=== PATIENT | male | born 1955 | race Caucasian/White ===

== ENCOUNTER 2022-03-04 07:31 | Day surgery (SDC) | payer OTHER, SELFPAY ==
[2022-03-04] MEDS: Tropicam./Phenyleph. (1/2.5%) 5 ML BTL OD ×3 (08:16→08:27)
[2022-03-04 08:17] VITALS: BP 166/90; PULSE 79; RESP 16; TEMP 36.6; O2SAT 98
--- NOTE | 2022-03-04 08:25 | W.ANESPRE ---
General Info Date of Service Date Performed: 03/04/22 Height: 5 ft 7 in Weight: 92.533 kg Body Mass Index (BMI): 31.9 Surgical Procedure: Operation Date: 03/04/22 09:10 Proposed Procedure Side Surgeon p Cataract Extraction with IOL Implant Right Quoc Roberts MD Meds Allergies and Home Medications Allergies Allergy/AdvReac Type Severity Reaction Status Date / Time No Known Allergies Allergy Unverified 03/04/22 08:08 Home Medication Medication Instructions Recorded Lactobacillus comb 2 cap PO DAILY 03/03/22 [id number] 300 million cell-250 mg capsule (Probiotic and Acidophilus) Tumeric Complex 500 mg PO BID 03/03/22 allopurinol 100 mg tablet 100 mg PO DAILY 03/03/22 amitriptyline 10 mg tablet 10 mg PO HS 03/03/22 amlodipine 10 mg tablet 10 mg PO DAILY 03/03/22 escitalopram oxalate 10 mg tablet 10 mg PO DAILY 03/03/22 furosemide 20 mg tablet 20 mg PO DIRECTED 03/03/22 glipizide 5 mg tablet 5 mg PO BID 03/03/22 insulin glargine 100 unit/mL (3 12 unit subcut BID 03/03/22 mL) subcutaneous pen (Lantus Solostar U-100 Insulin) metoprolol succinate 200 mg 200 mg PO DAILY 03/03/22 tablet,extended release 24 hr omega-3 fatty acids-vitamin E 1 cap PO BID 03/03/22 1,000 mg capsule phenazopyridine 200 mg tablet 200 mg PO TID PRN Pain 03/03/22 sodium bicarbonate 325 mg tablet 325 mg PO BID 03/03/22 sodium bicarbonate 650 mg tablet 650 mg PO BID 03/03/22 tamsulosin 0.4 mg capsule 0.4 mg PO HS 03/03/22 Current Visit Medications: Current Medications Generic Name Dose Route Start Last Admin Trade Name Freq PRN Reason Stop Dose Admin Acetaminophen 1,000 mg 03/04/22 06:00 Acetaminophen 500 Mg Tab PO Q4H PRN PRN Miscellaneous Medication 0 ml 03/04/22 06:00 Prednisolone 1%, Moxifloxacin 0.5%, Nepafenac 0.1% 5ml Btl OD DIRECTED DENISSE Miscellaneous Medication 0 ml 03/04/22 06:00 03/04/22 08:21 Tropicam./Phenyleph. (1/2.5%) 5 Ml Btl OD 1 drp DIRECTED DENISSE Administration Tetracaine HCl 0 ml 03/04/22 06:00 Tetracaine 0.5% 4 Ml Btl OD DIRECTED [facility] Medical History Medical History AV fistula LEFT SIDE Depression Diabetes mellitus End stage renal disease recieves dialysis. M-W-F HTN (hypertension) Port-A-Cath in place Right chest Prostate cancer Surgical History Surgical History (Updated 03/04/22 @ 08:08 by Heather Ramirez) Hx of colonoscopy Hx of gastric bypass Hx of prostatectomy Tobacco Smoking/Tobacco Use Status: Former Tobacco Use Alcohol Alcohol Intake: never Substance Use Substance use: Never Substance use type: does not use Vital Signs and Lab Results Vital Signs Most Recent Vital Signs in EMR: Most Recent Vital Signs Temp Pulse Resp BP Pulse Ox 36.6 C 79 16 166/90 H 98 03/04/22 08:17 03/04/22 08:17 03/04/22 08:17 03/04/22 08:17 03/04/22 08:17 Point of Care Results Point of Care Results: Finger Stick Blood Glucose 89 03/04/22 08:24 Lab Results Blood Type / Crossmatch: No Data to Display Complete Blood Count: No Data to Display Complete Metabolic Panel: No Data to Display Liver Function Panel: No Data to Display Coagulation Panel: No Data to Display Cardiac Panel: No Data to Display Arterial Blood Gas: No Data to Display Venous Blood Gas: No Data to Display Pancreas Panel: No Data to Display Thyroid Panel: No Data to Display Infectious Disease: No Data to Display Blood Cultures: No Data to Display Toxicology Panel: No Data to Display Anesthesia Assessment and Plan Anesthesia History Personal History: No History of Anesthesia Complications Family History: No Family History of Anesthesia Complications Exercise Tolerance Exercise Tolerance: Metabolic Equivalents<4 Pertinent Negatives Pertinent Negatives: No Major Cardiovascular Symptoms or Complaints and No Major Pulmonary Symptoms or Complaints Cardiac & Pulmonary Exam Cardiac Exam: Normal S1/S2 Heart Sounds Pulmonary Exam: Clear Bilateral Breath Sounds Implantable Cardiac Device Does patient have a Pacemaker or an ICD?: No Airway Exam Known Difficult Airway: No Mallampati Class: 3 Mouth Opening: Normal (> 3cm) Thyromental Distance: Greater than 3 cm Neck Range of Motion: Full ROM Neck Circumference: Normal Teeth Condition: Normal Dentition and Removable Dentures/Plates Lower (Lower partial) ASA Classification ASA Score: ASA 3 Emergency Case?: No NPO Status NPO Status: NPO Clears >2 hours, Solids >8 hours Anesthesia Plan Resuscitation Status: Full Code Anesthesia Technique: MAC Anesthesia Airway Planned: Natural Airway Monitors Used: Standard Monitors
[2022-03-04 08:58] VITALS: BMI 31.9
[2022-03-04] MEDS: Tetracaine 0.5% 4 ML BTL OD (09:08)
[2022-03-04] MEDS: Povidone-Iodine Ophth 30 ML BTL (09:09)
[2022-03-04] MEDS: Lidocaine 2% Jelly 6 ML SYR (09:10)
[2022-03-04] MEDS: Duovisc Viscoelastic System EACH 1 EACH (09:15)
[2022-03-04] MEDS: Balanced Salt Soln.-PLUS 500 ML BAG (09:15)
[2022-03-04] MEDS: Triamcinolone 40 MG/ML VIAL (09:21)
--- NOTE | 2022-03-04 09:39 | W.PM.DSUDISC ---
Discharge Plan Disposition Patient Disposition: HOME Condition: Good Discharge Details Attending Provider: Quoc Roberts Primary Care Provider: Chester Ahumada Home Meds and New Rx's Prescriptions: No Action sodium bicarbonate 325 mg Tablet 325 mg PO BID metoprolol succinate 200 mg Tablet Extended Release 24 Hr 200 mg PO DAILY phenazopyridine 200 mg Tablet 200 mg PO TID PRN (Reason: Pain) allopurinol 100 mg Tablet 100 mg PO DAILY tamsulosin 0.4 mg Capsule 0.4 mg PO HS amitriptyline 10 mg Tablet 10 mg PO HS sodium bicarbonate 650 mg Tablet 650 mg PO BID amlodipine 10 mg Tablet 10 mg PO DAILY furosemide 20 mg Tablet 20 mg PO DIRECTED glipizide 5 mg Tablet 5 mg PO BID escitalopram oxalate 10 mg Tablet 10 mg PO DAILY Fish Oil 1,000 mg Capsule 1 cap PO BID Lantus Solostar U-100 Insulin 100 unit/mL (3 mL) Insulin Pen 12 unit SUBCUT BID Probiotic and Acidophilus 300-250 million cell-mg Capsule 2 cap PO DAILY Tumeric Complex 500 mg capsule 500 mg PO BID Discharge Instructions Stand Alone Forms: Post-op Topical Cataract, Adilene Robles ([facility]U) Discharge Orders Discharge Orders: Discharge Order (Routine); Ordered 03/04/22 Ordered By: Quoc Roberts DS: Diagnosis Discharge Diagnosis (1) Nuclear sclerotic cataract of right eye: Status: Resolved (2) Posterior subcapsular age-related cataract, right eye: Status: Resolved
--- NOTE | 2022-03-04 09:40 | ROE_ITS ---
Date of service: 03/04/22 Time of Service: 08:40 Operative Note Operative Note DATE OF PROCEDURE: 03/04/22 PRE-OP DIAGNOSIS: Nuclear/posterior subcapsular cataract, right eye POST-OP DIAGNOSIS: same PROCEDURE: Cataract extraction using phacoemulsification with intraocular lens implant, right eye SURGEON: Quoc Roberts ANESTHESIA TYPE: Local By Surgeon and MAC Refer to Anesthesia Record ESTIMATED BLOOD LOSS: 0 PATHOLOGY: none sent COMPLICATIONS: None Patient was transported to: same day Patient's condition: stable Implants: Naif & Naif/TONYA Tecnis [id number] Indications: Progressive visual loss due to cataract, right eye Procedure Description: CATARACT SURGERY OPERATIVE REPORT PREOPERATIVE DIAGNOSIS: 1. Nuclear/posterior subcapsular cataract, right eye POSTOPERATIVE DIAGNOSIS: Same OPERATION: 1. Cataract extraction using phacoemulsification with posterior chamber intraocular lens implant, right eye. IOL: IOL Medical Receptionist Medical Assistant/Model: Naif & Naif / TONYA Tecnis [id number] IOL Power: + 22.5 diopters IOL Serial Number: [id number] Optic Diameter: 6.0mm Haptic/Overall Diameter: 13.0mm PHACO INFO: [employer]ion Vision System with OZil and Active Fluidics Cumulative Dispersed Energy (CDE): 5.34 seconds SURGEON: Quoc Roberts MD, GENE ANESTHESIA: Monitored Anesthesia Care (MAC), with local sub-tenon's anesthetic infiltration COMPLICATIONS: None SPECIMENS: None INDICATIONS FOR PROCEDURE: The patient is a 67-year-old gentleman with history of diminished visual acuity in his right eye secondary to the development of nuclear and posterior subcapsular cataract. 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 He is currently undergoing intravitreal injections for treatment of his macular edema. He presents for cataract surgery and attempt to improve and maximize his vision. PROCEDURE: The correct surgical eye was identified and marked as the right eye and the pupil was dilated in the preoperative area using mydriatics and cycloplegics. The dilated pupil size was 7.0 mm. He elected to proceed without oral sedation. The patient was brought to the operating room where cardiopulmonary monitoring was instituted and surgical time-out was performed, confirming the correct operative eye and IOL power. Topical anesthesia was administered and ophthalmic povidone-iodine 5% was instilled into the conjunctival fornices. Lidocaine gel was applied to the cornea and the yanira-ocular area was prepped with Betadine 10% solution and draped in the usual sterile fashion for intraocular surgery, including an aperture drape. A Tegaderm transparent film dressing was cut in half and used to cover the lashes and lid margins. Care was taken to sequester the lashes and lid margins under the Tegaderm dressing. A lid speculum was placed between the lids of the operative eye and the Gabriel [employer] Revalia operating microscope was maneuvered into position. Joyce scissors were then used to make a conjunctival buttonhole approximately 6mm posterior to the limbus in the inferonasal quadrant. Blunt dissection was carried out to expose bare sclera, and a blunt-tipped sub-tenon?s anesthesia cannula was introduced and passed posteriorly along the globe where non- preserved plain lidocaine was injected into posterior sub-Tenon?s space. A sideport knife was used to make a paracentesis port inferotemporally. Intraocular phenylephrine/lidocaine was injected into the anterior chamber. The anterior chamber was filled with viscoelastic. A 2.4mm keratome knife was used to construct a 2-plane near-clear corneal tunnel extending 2.0mm into clear cornea superiortemporally. A flap was raised on the anterior capsule and capsulorhexis forceps were used to complete a continuous curvilinear capsulorhexis of 5.0 mm. Capsulorhexis was challenging due to constant eye movement. Balanced salt solution was then used to perform cortical cleaving hydrodissection and nuclear hydrodelineation until the lens could be freely rotated within the capsular bag. The lens nucleus was then disassembled and removed within the capsular bag and iris plane using phacoemulsification. Residual cortical material was removed using the I/A handpiece. The posterior capsule could not be effectively polished due to constant patient movement. Capsular bag was then inflated and the anterior chamber deepened with viscoelastic. The lens implant described above was inserted into the capsular bag using the TONYA [place] Injector. A Kuglen hook was used to dial the IOL into position. Residual viscoelastic was then removed first from posterior to the IOL, then from the anterior chamber using the I/A handpiece. The lens implant was noted to center nicely within the capsular bag. The incisions were stromally hydrated, and the anterior chamber was reformed using BSS. Then 0.5cc of moxifloxacin 1.0mg/ml were injected into the capsular bag and anterior chamber. The incisions were checked with a Weck spear and found to be secure. At the conclusion of the procedure, Kenalog 20 mg in 0.5 cc were injected into posterior sub-tenon's space using the sub-tenon's anesthesia injection cannula. Several drops of ophthalmic povidone-iodine 5% were then applied to the eye followed by two drops of Imprimis combination prednisolone/moxifloxacin/nepafenac solution. The drapes were removed and a clear plastic protective eye shield was placed over the eye. The patient was then returned to Same Day Surgery in stable condition.
[2022-03-04 09:57] VITALS: BP 167/100; PULSE 81; RESP 16; TEMP 36.4; O2SAT 97
--- NOTE | 2022-03-04 10:13 | W.ANESPOSTOP ---
Postoperative Evaluation Date, Time and Location Date Performed: 03/04/22 Time Performed: 09:57 Patient Location: Day Surgery Unit Vital Signs Most Recent Imported Vital Signs: Most Recent Vital Signs Temp Pulse Resp BP Pulse Ox 36.4 C L 81 16 167/100 H 97 03/04/22 09:57 03/04/22 09:57 03/04/22 09:57 03/04/22 09:57 03/04/22 09:57 Pain Score Most Recent Pain Score: Most Recent Pain Score Pain Level 0 03/04/22 09:57 Assessment Mental Status: Awake (Alert & Oriented to Patient Baseline) Airway and Respiratory Function: Patent airway with normal (patient baseline) respiratory exam Cardiovascular Function: Hemodynamically Stable Hydration Status: Adequately Hydrated Nausea & Vomiting: No Nausea or Vomiting Pain: Pt. Denies Any Pain Peripheral Nerve Block: Patient did not receive a nerve block
== END 2022-03-04 10:04 | disposition home or self-care (01) ==
PROVIDERS: PCP Family Medicine; Visit Provider Ophthalmology
PROC: (CPT 66984; principal; 2022-03-04 09:00)
DX: H25.811 Combined forms of age-related cataract, right eye (principal); E11.22 Type 2 diabetes mellitus with diabetic chronic kidney disease; I12.0 Hypertensive chronic kidney disease with stage 5 chronic kidney disease or end stage renal disease; N18.6 End stage renal disease; Z99.2 Dependence on renal dialysis; C61 Malignant neoplasm of prostate
CPT/HCPCS: 66984; V2632

== ENCOUNTER 2022-03-18 07:04 | Day surgery (SDC) | payer OTHER, SELFPAY ==
[2022-03-18 07:17] VITALS: BP 177/92; PULSE 79; RESP 16; TEMP 36.5; O2SAT 99
[2022-03-18 07:24] VITALS: BP 177/92; PULSE 79; RESP 16; TEMP 36.5; O2SAT 99
[2022-03-18] MEDS: Tropicam./Phenyleph. (1/2.5%) 5 ML BTL OS ×3 (07:31→07:43)
--- NOTE | 2022-03-18 07:45 | W.ANESPRE ---
General Info Date of Service Date Performed: 03/18/22 Height: 5 ft 7 in Weight: 92.4 kg Body Mass Index (BMI): 31.8 Surgical Procedure: Operation Date: 03/18/22 08:40 Proposed Procedure Side Surgeon p Cataract Extraction with IOL Implant Left Quoc Roberts MD Meds Allergies and Home Medications Allergies Allergy/AdvReac Type Severity Reaction Status Date / Time No Known Allergies Allergy Verified 03/18/22 07:33 Home Medication Medication Instructions Recorded Lactobacillus comb 2 cap PO DAILY 03/03/22 [id number] 300 million cell-250 mg capsule (Probiotic and Acidophilus) Tumeric Complex 500 mg PO BID 03/03/22 amitriptyline 10 mg tablet 10 mg PO HS 03/03/22 amlodipine 10 mg tablet 10 mg PO DAILY 03/03/22 escitalopram oxalate 10 mg tablet 10 mg PO DAILY 03/03/22 furosemide 20 mg tablet 20 mg PO DIRECTED 03/03/22 glipizide 5 mg tablet 5 mg PO BID 03/03/22 insulin glargine 100 unit/mL (3 12 unit subcut BID 03/03/22 mL) subcutaneous pen (Lantus Solostar U-100 Insulin) metoprolol succinate 200 mg 200 mg PO DAILY 03/03/22 tablet,extended release 24 hr omega-3 fatty acids-vitamin E 1 cap PO BID 03/03/22 1,000 mg capsule sodium bicarbonate 325 mg tablet 325 mg PO BID 03/03/22 sodium bicarbonate 650 mg tablet 650 mg PO BID 03/03/22 tamsulosin 0.4 mg capsule 0.4 mg PO HS 03/03/22 Current Visit Medications: Current Medications Generic Name Dose Route Start Last Admin Trade Name Freq PRN Reason Stop Dose Admin Acetaminophen 1,000 mg 03/18/22 06:00 Acetaminophen 500 Mg Tab PO Q4H PRN PRN Miscellaneous Medication 0 ml 03/18/22 06:00 Prednisolone 1%, Moxifloxacin 0.5%, Nepafenac 0.1% 5ml Btl OS DIRECTED [facility] Miscellaneous Medication 0 ml 03/18/22 06:00 03/18/22 07:43 Tropicam./Phenyleph. (1/2.5%) 5 Ml Btl OS 1 drp DIRECTED [facility] Administration Tetracaine HCl 0 ml 03/18/22 06:00 Tetracaine 0.5% 4 Ml Btl OS DIRECTED [facility] PFS Active Problems Active Problems: Problem Status Onset Code Posterior subcapsular age-related cataract, right eye H25.041 Nuclear sclerotic cataract of right eye H25.11 Medical History Medical History AV fistula LEFT SIDE Depression Diabetes mellitus End stage renal disease recieves dialysis. M-W-F HTN (hypertension) Port-A-Cath in place Right chest Prostate cancer Surgical History Surgical History Hx of colonoscopy Hx of gastric bypass Hx of prostatectomy Tobacco Smoking/Tobacco Use Status: Former Tobacco Use Alcohol Alcohol Intake: never Substance Use Substance use: Never Substance use type: does not use Vital Signs and Lab Results Vital Signs Most Recent Vital Signs in EMR: Most Recent Vital Signs Temp Pulse Resp BP Pulse Ox 36.5 C 79 16 177/92 H 99 03/18/22 07:24 03/18/22 07:24 03/18/22 07:24 03/18/22 07:24 03/18/22 07:24 Point of Care Results Point of Care Results: Finger Stick Blood Glucose 131 03/18/22 07:35 Lab Results Blood Type / Crossmatch: No Data to Display Complete Blood Count: No Data to Display Complete Metabolic Panel: No Data to Display Liver Function Panel: No Data to Display Coagulation Panel: No Data to Display Cardiac Panel: No Data to Display Arterial Blood Gas: No Data to Display Venous Blood Gas: No Data to Display Pancreas Panel: No Data to Display Thyroid Panel: No Data to Display Infectious Disease: No Data to Display Blood Cultures: No Data to Display Toxicology Panel: No Data to Display Anesthesia Assessment and Plan Anesthesia History Personal History: No History of Anesthesia Complications Family History: No Family History of Anesthesia Complications Exercise Tolerance Exercise Tolerance: Metabolic Equivalents<4 Cardiac & Pulmonary Exam Cardiac Exam: Normal S1/S2 Heart Sounds Pulmonary Exam: Clear Bilateral Breath Sounds Implantable Cardiac Device Does patient have a Pacemaker or an ICD?: No Airway Exam Known Difficult Airway: No Mallampati Class: 3 Mouth Opening: Normal (> 3cm) Thyromental Distance: Greater than 3 cm Neck Range of Motion: Full ROM Neck Circumference: Normal Teeth Condition: Normal Dentition and Removable Dentures/Plates Lower (Lower partial) ASA Classification ASA Score: ASA 4 Emergency Case?: No NPO Status NPO Status: NPO Clears >2 hours, Solids >8 hours Anesthesia Plan Resuscitation Status: Full Code Anesthesia Technique: MAC Anesthesia Airway Planned: Natural Airway Monitors Used: Standard Monitors
[2022-03-18 08:10] VITALS: BMI 31.8
[2022-03-18] MEDS: Lidocaine 2% Jelly 6 ML SYR (08:17)
[2022-03-18] MEDS: Tetracaine 0.5% 4 ML BTL OS (08:17)
[2022-03-18] MEDS: Balanced Salt Soln.-PLUS 500 ML BAG (08:30)
[2022-03-18] MEDS: Duovisc Viscoelastic System EACH 1 EACH (08:30)
[2022-03-18] MEDS: Povidone-Iodine Ophth 30 ML BTL (08:31)
--- NOTE | 2022-03-18 08:49 | W.PM.DSUDISC ---
Discharge Plan Disposition Patient Disposition: HOME Condition: Good Discharge Details Attending Provider: Quoc Roberts Primary Care Provider: Chester Ahumada Home Meds and New Rx's Prescriptions: No Action sodium bicarbonate 325 mg Tablet 325 mg PO BID metoprolol succinate 200 mg Tablet Extended Release 24 Hr 200 mg PO DAILY tamsulosin 0.4 mg Capsule 0.4 mg PO HS amitriptyline 10 mg Tablet 10 mg PO HS sodium bicarbonate 650 mg Tablet 650 mg PO BID amlodipine 10 mg Tablet 10 mg PO DAILY furosemide 20 mg Tablet 20 mg PO DIRECTED glipizide 5 mg Tablet 5 mg PO BID escitalopram oxalate 10 mg Tablet 10 mg PO DAILY Fish Oil 1,000 mg Capsule 1 cap PO BID Lantus Solostar U-100 Insulin 100 unit/mL (3 mL) Insulin Pen 12 unit SUBCUT BID Probiotic and Acidophilus 300-250 million cell-mg Capsule 2 cap PO DAILY Tumeric Complex 500 mg capsule 500 mg PO BID Discharge Instructions Stand Alone Forms: Post-op Topical Cataract, Adilene Robles ([facility]U) Discharge Orders Discharge Orders: Discharge Order (Routine); Ordered 03/18/22 Ordered By: Quoc Roberts DS: Diagnosis Discharge Diagnosis (1) Cortical cataract of left eye: Status: Resolved (2) Nuclear sclerotic cataract of left eye: Status: Resolved
--- NOTE | 2022-03-18 08:52 | ROE_ITS ---
Date of service: 03/18/22 Time of Service: 07:52 Operative Note Operative Note DATE OF PROCEDURE: 03/18/22 PRE-OP DIAGNOSIS: Nuclear/posterior subcapsular cataract, left eye nuclear/posterior subcapsular cataract, left eye POST-OP DIAGNOSIS: same PROCEDURE: Cataract extraction using phacoemulsification with intraocular lens implant, left eye SURGEON: Quoc Roberts ANESTHESIA TYPE: Local By Surgeon and MAC Refer to Anesthesia Record PATHOLOGY: none sent COMPLICATIONS: None Patient was transported to: same day Patient's condition: stable Implants: Naif and Naif / [employer] Tecnis [id number] Indications: Progressive decreased vision due to cataract, left eye Procedure Description: CATARACT SURGERY OPERATIVE REPORT PREOPERATIVE DIAGNOSIS: 1. Nuclear/posterior subcapsular cataract, left eye POSTOPERATIVE DIAGNOSIS: Same OPERATION: 1. Cataract extraction using phacoemulsification with posterior chamber intraocular lens implant, left eye. IOL: IOL Eyeglass Frames Polisher/Model: Naif & Naif / TONYA Tecnis ZCB00 IOL Power: + 22.5 diopters IOL Serial Number: [id number] Optic Diameter: 6.0 mm Haptic/Overall Diameter: 13.0 mm PHACO INFO: [employer]urion Vision System with OZil and Active Fluidics Cumulative Dispersed Energy (CDE): 5.60 seconds SURGEON: Quoc Roberts MD, GENE ANESTHESIA: Monitored A [facility] (MAC), with local sub-tenon's anesthetic infiltration COMPLICATIONS: None SPECIMENS: None INDICATIONS FOR PROCEDURE: The patient is a 67-year-old male with history of diminished visual acuity in both eyes secondary to development of significant bilateral cataract. He has already undergone cataract surgery in the right eye and is doing well postoperatively. He now presents for cataract surgery in the left eye. PROCEDURE: The correct surgical eye was identified and marked as the left eye and the pupil was dilated in the preoperative area using mydriatics and cycloplegics. The dilated pupil size was 6.5 mm. He elected to proceed without oral sedation. The patient was brought to the operating room where cardiopulmonary monitoring was instituted and surgical time-out was performed, confirming the correct operative eye and IOL power. Topical anesthesia was administered and ophthalmic povidone-iodine 5% was instilled into the conjunctival fornices. Lidocaine gel was applied to the cornea and the yanira-ocular area was prepped with Betadine 10% solution and draped in the usual sterile fashion for intraocular surgery, including an aperture drape. A Tegaderm transparent film dressing was cut in half and used to cover the lashes and lid margins. Care was taken to sequester the lashes and lid margins under the Tegaderm dressing. A lid speculum was placed between the lids of the operative eye and the Gabriel [employer] Revalia operating microscope was maneuvered into position. Joyce scissors were then used to make a conjunctival buttonhole approximately 6mm posterior to the limbus in the inferonasal quadrant. Blunt dissection was carried out to expose bare sclera, and a blunt-tipped sub-tenon?s anesthesia cannula was introduced and passed posteriorly along the globe where non- preserved plain lidocaine was injected into posterior sub-Tenon?s space. A sideport knife was used to make a paracentesis port superiorly/superiortemporally. Intraocular phenylephrine/lidocaine was injected int the anterior chamber.. The anterior chamber was filled with viscoelastic. A 2.4mm keratome knife was used to construct a 2-plane near-clear corneal tunnel extending 2.0mm into clear cornea temporally. A flap was raised on the anterior capsule and capsulorhexis forceps were used to complete a continuous curvilinear capsulorhexis of 5.0 mm. Balanced salt solution was then used to perform cortical cleaving hydrodissection and nuclear hydrodelineation until the lens could be freely rotated within the capsular bag. The lens nucleus was then disassembled and removed within the capsular bag and iris plane using phacoemulsification. Residual cortical material was removed using the 45-degree angled silicone I/A tip with 0.3mm port. The posterior capsule was carefully polished to remove as much residual lens epithelial cells as safely possible. The capsular bag was then inflated and the anterior chamber deepened with viscoelastic. The lens implant described above was inserted into the capsular bag using the TONYA [place] Injector. A Kuglen hook was used to dial the IOL into position. Residual viscoelastic was then removed first from posterior to the IOL, then from the anterior chamber using the I/A handpiece. The lens implant was noted to center nicely within the capsular bag. The incisions were stromally hydrated, and the anterior chamber was reformed using BSS. Then 0.5cc of moxifloxacin 1.0mg/ml were injected into the capsular bag and anterior chamber. The incisions were checked with a Weck spear and found to be secure. Several drops of ophthalmic povidone-iodine 5% were then applied to the eye followed by two drops of Imprimis combination prednisolone/moxifloxacin/nepafenac solution. The drapes were removed and a clear plastic protective eye shield was placed over the eye. The patient was then returned to Same Day Surgery in stable condition.
[2022-03-18 08:54] VITALS: BP 184/99; PULSE 81; RESP 18; TEMP 36.6; O2SAT 96
--- NOTE | 2022-03-18 09:08 | W.ANESPOSTOP ---
Postoperative Evaluation Date, Time and Location Date Performed: 03/18/22 Time Performed: 09:01 Patient Location: Day Surgery Unit Vital Signs Most Recent Imported Vital Signs: Most Recent Vital Signs Temp Pulse Resp BP Pulse Ox 36.6 C 81 18 184/99 H 96 03/18/22 08:54 03/18/22 08:54 03/18/22 08:54 03/18/22 08:54 03/18/22 08:54 Pain Score Most Recent Pain Score: Most Recent Pain Score Pain Level 0 03/18/22 08:54 Assessment Mental Status: Awake (Alert & Oriented to Patient Baseline) Airway and Respiratory Function: Patent airway with normal (patient baseline) respiratory exam Cardiovascular Function: Hemodynamically Stable Hydration Status: Adequately Hydrated Nausea & Vomiting: No Nausea or Vomiting Pain: Pt. Denies Any Pain Peripheral Nerve Block: Patient did not receive a nerve block
== END 2022-03-18 09:13 | disposition home or self-care (01) ==
PROVIDERS: PCP Family Medicine; Visit Provider Ophthalmology
PROC: (CPT 66984; principal; 2022-03-18 08:30)
DX: H25.12 Age-related nuclear cataract, left eye (principal); I12.0 Hypertensive chronic kidney disease with stage 5 chronic kidney disease or end stage renal disease; E11.22 Type 2 diabetes mellitus with diabetic chronic kidney disease; N18.6 End stage renal disease
CPT/HCPCS: 66984; V2632